=== PATIENT | female | born 1965 | race Caucasian/White ===

== ENCOUNTER 2016-07-30 07:31 | Emergency (ER) | payer OTHER ==
[2016-07-30 07:48] VITALS: BP 116/72; TEMP 98; BMI 33.6
[2016-07-30] MEDS ORDERED: KETOROLAC TROMETHAMINE 30 MG/1 ML VIAL IVPUSH ONE (08:38)
[2016-07-30] MEDS ORDERED: ALBUTEROL SO4 2.5/IPRATROPIUM 0.5 INH SOL 3 ML VIAL.NEB. NEB ONE (08:39)
--- NOTE | 2016-07-30 08:41 | PDOC ---
History of Present Illness - General Chief Complaint: Cold Symptoms Stated Complaint: COUGH AND VAGINAL BLEED Time Seen by Provider: 07/30/16 08:08 - History of Present Illness Initial Comments: 07/30/16 08:46 51-year-old female with a past medical history of anemia due to heavy vaginal bleeding She states that in May she saw her PROFESSIONAL DEVELOPMENT MANAGER, and had a complete evaluation, including an endometrial biopsy, which was reportedly normal She has known fibroids, and she is perimenopausal, and has had episodes of heavy vaginal bleeding in the past, and she is actually was required transfusion due to this She is complaining of 2 days of vaginal bleeding again, similar to above, with cramps and clots Patient is also dates that she has had congestion and cough, and URI symptoms off and on since June, but finally started feeling better, however In the past week both of her grandchildren have the flu, and she has not had the flu shot Now she is complaining of 3-4 days of cough, congestion, occasional yellow sputum, runny nose, sore throat, body aches, headache, and flulike symptoms She denies any vomiting or diarrhea She denies any urinary symptoms She states that she feels very achy and sore She denies any other complaints at this time, and the remainder of the review of systems is negative Past History - Past Medical History Allergies/Adverse Reactions: Allergies Allergy/AdvReac Type Severity Reaction Status Date / Time Penicillins Allergy Severe Difficulty Verified 04/05/16 09:24 Breathing Home Medications: Ambulatory Orders Ibuprofen [Advil -] 400 mg PO QID PRN 05/03/16 Albuterol Sulfate Inhaler - [Ventolin HFA Inhaler -] 1 - 2 inh PO QID PRN #1 inhaler 07/30/16 Norgestimate-Ethinyl Estradiol [Ortho-Cyclen] 1 each PO ASDIR #10 tablet Anemia: Yes (BLOOD TRANSFUSION X1) Asthma: No Cancer: No Cardiac Disorders: No CVA: No COPD: No CHF: No Dementia: No Diabetes: No GI Disorders: No Disorders: No HTN: No Hypercholesterolemia: No Liver Disease: No Seizures: No Thyroid Disease: No Other medical history: SLEEP APNEA - Surgical History Abdominal Surgery: No Appendectomy: No Cardiac Surgery: No Cholecystectomy: No Lung Surgery: No Neurologic Surgery: No Orthopedic Surgery: No - Psycho/Social/Smoking Cessation Hx Anxiety: No Suicidal Ideation: No Smoking Status: No Smoking History: Never smoked Have you smoked in the past 12 months: No Number of Cigarettes Smoked Daily: 0 Hx Alcohol Use: No Drug/Substance Use Hx: No Substance Use Type: None Hx Substance Use Treatment: No Review of Systems - Review of Systems Able to Perform ROS?: Yes Comments:: 07/30/16 08:51 12 point review of systems is as per history of present illness and otherwise negative *Physical Exam - Vital Signs Last Vital Signs Temp Pulse Resp BP Pulse Ox 98 F 18 116/72 100 07/30/16 07:32 07/30/16 07:32 07/30/16 07:32 07/30/16 07:32 - Physical Exam Comments: 07/30/16 08:52 Physical exam Last Vital Signs Temp Pulse Resp BP Pulse Ox 98 F 18 116/72 100 07/30/16 07:32 07/30/16 07:32 07/30/16 07:32 07/30/16 07:32 GENERAL: The patient is awake, alert, and coughing continuously HEAD: Normal with no signs of trauma. EYES: sclera anicteric, conjunctiva are normal. ENT: Throat is mildly erythematous without exudate NECK: Normal range of motion, supple LUNGS: Breath sounds equal, clear to auscultation bilaterally. No wheezes, and no crackles. HEART: Regular rate and rhythm, normal S1 and S2 without murmur, rub or gallop. ABDOMEN: Soft, nontender, normoactive bowel sounds. No guarding, no rebound. No masses appreciated. mild suprapubic tenderness EXTREMITIES: Normal range of motion, no edema. No clubbing or cyanosis. No cords, erythema, or tenderness. NEUROLOGICAL: Cranial nerves II through XII grossly intact. Normal speech, normal gait. PSYCH: Normal mood, normal affect. SKIN: Warm, Dry, normal turgor, no rashes or lesions noted. ED Treatment Course - LABORATORY CBC & Chemistry Diagram: 07/30/16 08:38 07/30/16 08:38 Medical Decision Making - Medical Decision Making 07/30/16 08:53 Most likely acute influenza, and also recurrence of her chronic intermittent vaginal bleeding Will hydrate, control symptomatology, and check labwork 07/30/16 10:40 Influenza A and B-neg Chest x-ray negative Labwork reviewed Laboratory Results - last 24 hr 07/30/16 07/30/16 08:38 08:38 WBC 6.2 RBC 4.39 Hgb 13.5 D Hct 39.7 MCV 90.4 MCHC 34.1 RDW 12.9 Plt Count 274 D MPV 8.2 Sodium 138 Potassium 4.3 Chloride 108 H Carbon Dioxide 25 Anion Gap 5 L BUN 13 D Creatinine 0.6 Creat Clearance w eGFR > 60 Random Glucose 90 Calcium 8.9 Total Bilirubin 0.2 D AST 24 ALT 35 Alkaline Phosphatase 62 Total Protein 6.5 Albumin 4.0 Vaginal bleeding discussed with patient's PROFESSIONAL DEVELOPMENT MANAGER - Dr Mcdonough Patient has had this before and has been extensively worked up for this Dr. Mcdonough would like patient to have Ngart-Jvfqff-6 pills today, 2 pills tomorrow, and one pill Tuesday, and she will see her in the office on Tuesday *DC/Admit/Observation/Transfer Diagnosis at time of Disposition: Influenza-like illness, Cough, DUB (dysfunctional uterine bleeding) - Discharge Dispostion Disposition: HOME Condition at time of disposition: Improved - Prescriptions Prescriptions: Norgestimate-Ethinyl Estradiol [Ortho-Cyclen] 1 each PO ASDIR #10 tablet Albuterol Sulfate Inhaler - [Ventolin HFA Inhaler -] 1 - 2 inh PO QID PRN #1 inhaler PRN Reason: Cough - Patient Instructions Additional Instructions: Rest, increase fluid intake, Tylenol or Motrin for discomfort You may use any tlis-xnv-ydgpwst cough or cold kvxlwjsyeqw-Syeltnmngm-YT, etc Albuterol inhaler-2 puffs every 4-6 hours if needed for sustained coughing As per Dr. Mcdonough - You are to take Orqye-Lphjkz-8 pills today, 2 pills tomorrow, and one pill Tuesday Please call her office as she states that she will see you in the office on Tuesday Followup with your primary care physician in 24-48 hours Return immediately if you worsen in any way Take your medications as directed
[2016-07-30] MEDS ORDERED: SODIUM CHLORIDE 1,000 ML IV SCH (08:45)
[2016-07-30] MEDS ORDERED: ACETAMINOPHEN 1000 MG/100 ML VIAL (NON FORMULARY) IVPB ONE (08:49)
[2016-07-30] MEDS ORDERED: ACETAMINOPHEN INJECTION 100 ML IVPB ONE (08:49)
[2016-07-30 09:04] LABS: MCH 30.8 pg (25.7-33.7); MCHC 34.1 g/dl (32.0-36.0); MEAN CELL VOLUME 90.4 fl (80-96); MEAN PLT VOLUME 8.2 fl (7.5-11.1); PLATELET COUNT 274 K/MM3 (134-434); RDW 12.9 % (11.6-15.6); WHITE BLOOD COUNT 6.2 K/mm3 (4.0-10.0)
[2016-07-30 09:10] LABS: ALK PHOS 62 U/L (32-92); ANION GAP 5 (8-16); CALCIUM 8.9 mg/dl (8.4-10.2); CO2 25 mmol/L (22-28); CREATININE 0.6 mg/dl (0.6-1.3); GLUCOSE,RANDOM 90 mg/dl (74-106); SGOT/AST 24 U/L (10-42); SGPT/ALT 35 U/L (10-40); TOT PROT 6.5 g/dl (6.4-8.3)
[2016-07-30 09:49] LABS: BILIRUBIN,TOTAL 0.2 mg/dl (0.2-1.0)
== END 2016-07-30 10:54 | disposition home or self-care (01) ==
LOC: FER 07:31
PROC: 3E033NZ Introduction of Analgesics, Hypnotics, Sedatives into Peripheral Vein, Percutaneous Approach (ICD-10-PCS; principal; 2016-07-30)
PROC: 3E0F7GC Introduction of Other Therapeutic Substance into Respiratory Tract, Via Natural or Artificial Opening (ICD-10-PCS; 2016-07-30)
PROC: 3E0337Z Introduction of Electrolytic and Water Balance Substance into Peripheral Vein, Percutaneous Approach (ICD-10-PCS; 2016-07-30)
DX: N93.8 Other specified abnormal uterine and vaginal bleeding (principal); J11.1 Influenza due to unidentified influenza virus with other respiratory manifestations
CPT/HCPCS: 36415; 71020-TC; 80053; 85027; 87804; 99284-25

== ENCOUNTER 2016-11-06 12:06 | Emergency (ER) | payer OTHER ==
[2016-11-06 12:33] LABS: URINE APPEARANCE Clear; URINE BILIRUBIN Negative (NEGATIVE); URINE BLOOD Negative (NEGATIVE); URINE COLOR AMBER; URINE GLUCOSE (UA) Negative (NEGATIVE); URINE KETONE Negative (NEGATIVE); URINE LEUK ESTERASE Negative (NEGATIVE); URINE NITRITE Negative (NEGATIVE); URINE PROTEIN Negative (NEGATIVE); URINE UROBILINOGEN 0.2 E.U/dl (0.2-1.0)
[2016-11-06] MEDS ORDERED: OXYCODONE/APAP 5/325MG COMBO TABLET PO ONE (12:33)
[2016-11-06] MEDS ORDERED: OXYCODONE/APAP 5/325MG COMBO TABLET ONE (12:35)
[2016-11-06 12:43] VITALS: BP 130/85; PULSE 88; TEMP 98.6; BMI 33.6
[2016-11-06] MEDS ORDERED: KETOROLAC TROMETHAMINE 30 MG/1 ML VIAL IM ONE (13:25)
[2016-11-06] MEDS ORDERED: KETOROLAC TROMETHAMINE 30 MG/1 ML VIAL ONE (13:29)
[2016-11-06] MEDS ORDERED: diazePAM 5 MG TABLET PO ONE (14:37)
[2016-11-06] MEDS ORDERED: diazePAM 5 MG TABLET ONE (14:38)
--- NOTE | 2016-11-06 15:13 | PDOC ---
History of Present Illness - General Chief Complaint: Back Pain Stated Complaint: BACK PAIN Time Seen by Provider: 11/06/16 12:16 - History of Present Illness Initial Comments: 11/06/16 15:07 51 yo F with h/o chronic back pain, who saw orthopedist this am for steroid injection, here with c/o worseing pain. pt states has prescription in past for narcotics but does not want to take. took motrin at 3 am, no relief. no new numbness or weakness. had mRI 2 mo ago which showed chronic changes and indication for surgery but pt does not want to have surgery. no bowel or bladder incontinence. no mod factors. no recent trauma. Past History - Past Medical History Allergies/Adverse Reactions: Allergies Allergy/AdvReac Type Severity Reaction Status Date / Time Penicillins Allergy Severe Difficulty Verified 08/12/16 06:46 Breathing Home Medications: Ambulatory Orders Norgestimate-Ethinyl Estradiol [Ortho-Cyclen] 1 each PO DAILY 11/06/16 Anemia: Yes (H/O) Asthma: No Cancer: No Cardiac Disorders: No CVA: No COPD: No CHF: No Dementia: No Diabetes: No GI Disorders: No Disorders: No HTN: No Hypercholesterolemia: Yes Liver Disease: No Seizures: No Thyroid Disease: No Other medical history: BACK PAIN RELATED BACK INJURY 2012 - Surgical History Abdominal Surgery: No Appendectomy: No Cardiac Surgery: No Cholecystectomy: No Lung Surgery: No Neurologic Surgery: No Orthopedic Surgery: No - Psycho/Social/Smoking Cessation Hx Anxiety: No Suicidal Ideation: No Smoking Status: No Smoking History: Never smoked Have you smoked in the past 12 months: No Number of Cigarettes Smoked Daily: 0 Hx Alcohol Use: No Drug/Substance Use Hx: No Substance Use Type: None Hx Substance Use Treatment: No Review of Systems - Review of Systems Constitutional: No: Chills, Diaphoresis, Fever HEENTM: No: Blurred Vision Respiratory: No: Cough, Orthopnea Cardiac (ROS): No: Chest Pain, Edema : No: Burning, Dysuria, Discharge Musculoskeletal: Yes: Back Pain Neurological: No: Headache, Numbness, Paresthesia, Weakness All Other Systems: Reviewed and Negative *Physical Exam - Vital Signs Last Vital Signs Temp Pulse Resp BP Pulse Ox 98.6 F 88 16 130/85 98 11/06/16 12:09 11/06/16 12:09 11/06/16 12:09 11/06/16 12:09 11/06/16 12:09 - Physical Exam General Appearance: Yes: Nourished HEENT: positive: Normal Voice Neck: positive: Trachea midline Respiratory/Chest: positive: Lungs Clear, Normal Breath Sounds Cardiovascular: positive: Regular Rhythm, Regular Rate, S1, S2. negative: Edema , JVD Gastrointestinal/Abdominal: positive: Normal Bowel Sounds, Flat, Soft. negative : Tender Musculoskeletal: positive: Normal Inspection, Other (no midline spinal tenderness, paraspinal tenderness bilaterally low back). negative: CVA Tenderness, Vertebral Tenderness Extremity: positive: Normal Capillary Refill Integumentary: positive: Normal Color, Dry, Warm Neurologic: positive: program services assistant II-XII NML intact (5/5 all four ext, sensation intact bilat lower ext. ), Fully Oriented, Alert, Motor Strength / ED Treatment Course - ADDITIONAL ORDERS Additional order review: Laboratory Results 11/06/16 12:20 Urine Color Tavia Urine Appearance Clear Urine pH 5.0 Ur Specific [place] 1.025 Urine Protein Negative Urine Glucose (UA) Negative Urine Ketones Negative Urine Blood Negative Urine Nitrite Negative Urine Bilirubin Negative Urine Urobilinogen 0.2 e.u/dl Ur Leukocyte Esterase Negative - Medications Given in the ED: ED Medications Discontinued Medications Generic Name Dose Route Start Last Admin Trade Name Salasq PRN Reason Stop Dose Admin Diazepam 5 mg 11/06/16 14:37 11/06/16 14:40 Valium - PO 11/06/16 14:38 5 mg ONCE ONE Administration Ketorolac Tromethamine 30 mg 11/06/16 13:25 11/06/16 13:30 Toradol Injection - IM 11/06/16 13:26 30 mg ONCE ONE Administration Oxycodone/Acetaminophen 1 combo 11/06/16 12:33 11/06/16 12:38 Percocet 5/325 - PO 11/06/16 12:34 1 combo ONCE ONE Administration Medical Decision Making - Medical Decision Making 11/06/16 15:12 51 yo F with h/o chronic low back pain. here with worsening sxs following injection this am. no fever or changes to suggest infection. nuerological exam normal lower ext. pt with recent MRI imaging. plan nsaids, narcotics and muscle relaxers. laurie orellana with medrol dose anali. *DC/Admit/Observation/Transfer Diagnosis at time of Disposition: Low back pain at multiple sites - Discharge Dispostion Disposition: HOME Condition at time of disposition: Good Admit: No
== END 2016-11-06 15:50 | disposition home or self-care (01) ==
LOC: FER 12:06
PROC: 3E0233Z Introduction of Anti-inflammatory into Muscle, Percutaneous Approach (ICD-10-PCS; principal; 2016-11-06)
DX: M54.5 Low back pain (principal); E78.00 Pure hypercholesterolemia, unspecified; D64.9 Anemia, unspecified
CPT/HCPCS: 81003; 96372; 99282-25

== ENCOUNTER 2016-11-18 16:30 | Emergency (ER) | payer OTHER ==
[2016-11-18] MEDS ORDERED: diphenhydrAMINE HCL 25 MG CAPSULE (FP) PO ONE ×4 (16:44→17:18)
[2016-11-18 16:46] VITALS: BP 128/76; PULSE 73; TEMP 97.7; BMI 33.8
[2016-11-18] MEDS ORDERED: predniSONE 20 MG TABLET (UD) PO ONE (17:17)
--- NOTE | 2016-11-18 17:17 | PDOC ---
History of Present Illness - General History Source: Patient Exam Limitations: No Limitations <Vic Ramirez - Last Filed: 11/18/16 17:49> - General History Source: Patient Exam Limitations: No Limitations - History of Present Illness Initial Comments: 11/18/16 17:55 The patient is a 51 year old female, with past medical history of chronic back pain, HLD, and anemia, who presents to the emergency room with itchy eyes and and itchy throat since this morning when she woke up. The patient has not taken any allergy medications because she is fasting for . The patient denies recent changes in diet, soaps, shampoos, laundry products. She denies any rashes. Denies nausea, vomiting, diarrhea, fever, chills. Denies any difficulty swallowing, difficulty breathing. Denies chest pain. Allergies: penicillins <Bouchra Rosales - Last Filed: 11/18/16 17:56> - General Chief Complaint: Sore Throat Stated Complaint: TICKLE OF THROAT Time Seen by Provider: 11/18/16 16:43 Past History - Past Medical History Anemia: Yes (H/O) Asthma: No Cancer: No Cardiac Disorders: No CVA: No COPD: No CHF: No Dementia: No Diabetes: No GI Disorders: No Disorders: No HTN: No Hypercholesterolemia: Yes Liver Disease: No Seizures: No Thyroid Disease: No - Surgical History Abdominal Surgery: No Appendectomy: No Cardiac Surgery: No Cholecystectomy: No Lung Surgery: No Neurologic Surgery: No Orthopedic Surgery: No - Psycho/Social/Smoking Cessation Hx Anxiety: No Suicidal Ideation: No Smoking Status: No Smoking History: Never smoked Have you smoked in the past 12 months: No Number of Cigarettes Smoked Daily: 0 Hx Alcohol Use: No Drug/Substance Use Hx: No Substance Use Type: None Hx Substance Use Treatment: No <Vic Ramirez - Last Filed: 11/18/16 17:49> <Bouchra Rosales - Last Filed: 11/18/16 17:56> - Past Medical History Allergies/Adverse Reactions: Allergies Allergy/AdvReac Type Severity Reaction Status Date / Time Penicillins Allergy Severe Difficulty Verified 11/18/16 08:23 Breathing Home Medications: Ambulatory Orders Diazepam [Valium] 5 mg PO Q8H PRN #10 tablet MDD 3 06/03/17 Methylprednisolone [Medrol Dose Carlos] 4 mg PO ASDIR #21 tablet 11/06/16 Norgestimate-Ethinyl Estradiol [Ortho-Cyclen] 1 each PO DAILY 11/06/16 Oxycodone HCl/Acetaminophen [Percocet 5-325 mg Tablet] 1 tab PO Q4H #15 tablet MDD 6 11/06/16 Diphenhydramine HCl [Benadryl -] 25 mg PO Q6H PRN #20 capsule 11/18/16 Epinephrine [Adrenaclick] 0.3 mg IJ ONCE PRN #2 auto.injct 11/18/16 Prednisone [Deltasone] 40 mg PO DAILY #4 tablet 11/18/16 Review of Systems - Review of Systems Able to Perform ROS?: Yes Comments:: 11/18/16 17:42 GENERAL/CONSTITUTIONAL: No fever or chills. No weakness. HEAD, EYES, EARS, NOSE AND THROAT: No change in vision. No ear pain or discharge. CARDIOVASCULAR: No chest pain or shortness of breath. RESPIRATORY: No cough, wheezing, or hemoptysis. GASTROINTESTINAL: No nausea, vomiting, diarrhea or constipation. GENITOURINARY: No dysuria, frequency, or change in urination. MUSCULOSKELETAL: No joint or muscle swelling or pain. No neck or back pain. SKIN: No rash NEUROLOGIC: No headache, vertigo, loss of consciousness, or change in strength/ sensation. ENDOCRINE: No increased thirst. No abnormal weight change. HEMATOLOGIC/LYMPHATIC: No anemia, easy bleeding, or history of blood clots. ALLERGIC/IMMUNOLOGIC: +itchy eyes, itchy throat. No hives or skin allergy. <Bouchra Rosales - Last Filed: 11/18/16 17:56> *Physical Exam - Vital Signs Last Vital Signs Temp Pulse Resp BP Pulse Ox 97.7 F 73 16 128/76 97 11/18/16 16:37 11/18/16 16:37 11/18/16 16:37 11/18/16 16:37 11/18/16 16:37 <Vic Ramirez - Last Filed: 11/18/16 17:49> - Vital Signs Last Vital Signs Temp Pulse Resp BP Pulse Ox 97.7 F 73 16 128/76 97 11/18/16 16:37 11/18/16 16:37 11/18/16 16:37 11/18/16 16:37 11/18/16 16:37 - Physical Exam Comments: 11/18/16 17:43 GENERAL: Awake, alert, and fully oriented, in no acute distress HEAD: No signs of trauma EYES: PERRLA, EOMI, sclera anicteric, conjunctiva clear ENT: +oropharynx clear. Auricles normal inspection, hearing grossly normal, nares patent. Moist mucosa NECK: Normal ROM, supple, no lymphadenopathy, JVD, or masses LUNGS: Breath sounds equal, clear to auscultation bilaterally. No wheezes, and no crackles HEART: Regular rate and rhythm, normal S1 and S2, no murmurs, rubs or gallops ABDOMEN: Soft, nontender, normoactive bowel sounds. No guarding, no rebound. No masses EXTREMITIES: Normal range of motion, no edema. No clubbing or cyanosis. No cords, erythema, or tenderness NEUROLOGICAL: Cranial nerves II through XII grossly intact. Normal speech, normal gait SKIN: Warm, Dry, normal turgor, no rashes or lesions noted. <Bouchra Rosales - Last Filed: 11/18/16 17:56> ED Treatment Course - Medications Given in the ED: ED Medications Discontinued Medications Generic Name Dose Route Start Last Admin Trade Name Freq PRN Reason Stop Dose Admin Diphenhydramine HCl 25 mg 11/18/16 16:44 11/18/16 16:49 Benadryl - PO 11/18/16 16:45 25 mg ONCE ONE Administration <Vic Ramirez - Last Filed: 11/18/16 17:49> - Medications Given in the ED: ED Medications Discontinued Medications Generic Name Dose Route Start Last Admin Trade Name Freq PRN Reason Stop Dose Admin Diphenhydramine HCl 25 mg 11/18/16 16:44 11/18/16 16:49 Benadryl - PO 11/18/16 16:45 25 mg ONCE ONE Administration Diphenhydramine HCl 25 mg 11/18/16 17:17 11/18/16 17:20 Benadryl - PO 11/18/16 17:18 25 mg ONCE ONE Administration Prednisone 40 mg 11/18/16 17:17 11/18/16 17:20 Deltasone - PO 11/18/16 17:18 40 mg ONCE ONE Administration <Bouchra Rosales - Last Filed: 11/18/16 17:56> Medical Decision Making - Medical Decision Making 11/18/16 17:38 A portion of this note was documented by scribe services under my direction. I have reviewed the details of the note, within reason, and agree with the documentation with the following case summary and management plan written by me. Patient treated in the ED. Nursing notes are reviewed and incorporated into the medical decision-making. Vital signs reviewed. Peripheral IV access obtained by the nurse, laboratory studies are drawn and sent, reviewed and interpreted by myself. Vital Signs Temp Pulse Resp BP Pulse Ox 97.7 F 73 16 128/76 97 11/18/16 16:37 11/18/16 16:37 11/18/16 16:37 11/18/16 16:37 11/18/16 16:37 51 year old female with past medical history of anemia, hyperlipidemia, back pain presents with itchiness of her eyes and itchiness of her throat. The patient reports that she woke up this morning and felt some itching-like sensation and some mild bilateral periorbital edema. Denies any new exposures, soaps, shampoos. Does not remember touching anything different. Stated because of Ramadan, the patient did not initially take any medications. However, because of the persistent symptoms, the patient came to the ED. She denies difficulty breathing, throat swelling, chest pain, fainting, nausea, vomiting. It appears patient is likely having either seasonal ALLERGIES or mild ALLERGIC reaction. There is no concerns for anaphylaxis at this time. We'll trial some Benadryl and prednisone and reassess. If symptoms improved, we'll discharge with a short course of medications. 11/18/16 17:46 The patient reports feeling better with the benadryl and prednisone. Return precautions given. Will refer to an water safety teacher. I discussed the physical exam findings, ancillary test results and final diagnoses with the patient. I answered all of the patient's questions. The patient was satisfied with the care received and felt comfortable with the discharge plan and treatment plan. The patient will call their primary care physician within 24 hours to arrange follow-up and will return to the Emergency Department with any new, persistant or worsening symptoms. <Vic Ramirez - Last Filed: 11/18/16 17:49> *DC/Admit/Observation/Transfer - Discharge Dispostion Admit: No <Vic Ramirez - Last Filed: 11/18/16 17:49> - Attestations Scribe Attestion: 11/18/16 17:43 Documentation prepared by MICHAEL Meier, acting as director medical affairs for Vic Ramirez MD. <Bouchra Rosales - Last Filed: 11/18/16 17:56> Diagnosis at time of Disposition: Allergic reaction Qualifiers: Encounter type: initial encounter Qualified Code(s): T78.40XA - Allergy, unspecified, initial encounter - Discharge Dispostion Disposition: HOME Condition at time of disposition: Good - Prescriptions Prescriptions: Epinephrine [Adrenaclick] 0.3 mg IJ ONCE PRN #2 auto.injct PRN Reason: Anaphylaxis Diphenhydramine HCl [Benadryl -] 25 mg PO Q6H PRN #20 capsule PRN Reason: Itching Prednisone [Deltasone] 40 mg PO DAILY #4 tablet - Referrals Referrals: Francia Alfaro MD [Primary Care Provider] - Tavares Merino MD [Staff Physician] - - Patient Instructions Printed Discharge Instructions: DI for General Allergic Reactions Additional Instructions: Take 25 mg benadryl every 6 to 8 hours as needed for itching. Please take the 40 mg prednisone daily for the next 2 days. I have prescribed an adrenaclick (like an epi-pen) in case you develop anaphylaxis. If you develop throat closing sensation, severe difficulty breathing, use the pen and return to the ER. Follow up with an water safety teacher. Call to schedule an appointment.
[2016-11-18] MEDS ORDERED: predniSONE 20 MG TABLET (UD) ONE (17:18)
== END 2016-11-18 17:54 | disposition home or self-care (01) ==
LOC: SUPCPDRO 16:30 → FER 16:30
DX: E78.5 Hyperlipidemia, unspecified (principal); T78.40XA Allergy, unspecified, initial encounter; D64.9 Anemia, unspecified
CPT/HCPCS: 99281-25